=== PATIENT | male | born 1935 | race Hispanic/Latino ===

== ENCOUNTER 2017-11-19 22:24 | Observation (INO) | payer OTHER ==
[~2017-11-19] VITALS: Ht 188 cm; Wt 98.3 kg
[~2017-11-19 22:24] MED LIST: BENA10TA3 PO; EZET10 PO; LEVO100T6 PO; SIMV40TA59 PO; TAMS0.4C32 PO
[2017-11-19] MEDS ORDERED: ONDANSETRON HCL 4 MG/2 ML VIAL ONE (22:34)
[2017-11-19] MEDS ORDERED: SODIUM CHLORIDE 0.9% 500ML 500 ML IV ONE (22:34)
[2017-11-19 22:50] LABS: BASOPHILS % (AUTO) 0.4 % (0.0-5.0); EOSINOPHILS % (AUTO) 0.2 % (0.0-8.0); HEMATOCRIT 41.8 % (42-54); LYMPHOCYTES % (AUTO) 22.6 % (21.0-51.0); MEAN CORPUSCULAR HEMOGLOBIN 32.5 pg (27.0-33.0); MEAN CORPUSCULAR HGB CONC 34.2 g/dL (32.0-36.0); MEAN CORPUSCULAR VOLUME 95.2 fL (79-99); MONOCYTES % (AUTO) 8.3 % (3.0-13.0); NEUTROPHILS % (AUTO) 68.5 % (40.0-77.0); PLATELET COUNT (AUTO) 281 K/uL (130-400); RED BLOOD CELL COUNT(AUTO) 4.39 MIL/uL (4.50-6.20); RED CELL DISTRIBUTION WIDTH 13.6 % (11.0-15.5); WHITE BLOOD COUNT (AUTO) 7.2 K/uL (4.8-10.8)
[2017-11-19 23:00] LABS: CREATININE 0.7 mg/dL (0.5-1.5); POTASSIUM 4.4 mmol/L (3.5-5.1)
[2017-11-19 23:04] LABS: ALBUMIN 3.6 g/dL (3.5-5.0); BILIRUBIN,DIRECT 0.2 mg/dL (0.0-0.3); BILIRUBIN,TOTAL 0.6 mg/dL (0.2-1.0); TOTAL PROTEIN, SERUM 7.3 g/dL (6.0-8.3)
[2017-11-19 23:10] LABS: B-TYPE NATRIURETIC PEPTIDE 10 pg/mL (0-100)
[2017-11-20 00:53] LABS: APPEARANCE,URINE Clear (CLEAR); BILIRUBIN,URINE Negative (NEGATIVE); COLOR,URINE Yellow (YELLOW); GLUCOSE, URINE (UA) Negative (NEGATIVE); KETONES,URINE Negative (NEGATIVE); LEUKOCYTE ESTERASE ,URINE Negative (NEGATIVE); NITRATE,URINE Negative (NEGATIVE); OCCULT BLOOD,URINE Negative (NEGATIVE); PH,URINE 6.5 (5.0-8.0); PROTEIN,URINE Negative (NEGATIVE)
[2017-11-20] MEDS ORDERED: SODIUM CHLORIDE 0.9% 1000ML 1,000 ML IV ONE (04:03)
[2017-11-20] MEDS: SODIUM CHLORIDE 0.9% 1000ML 1,000 ML IV SCH ×2 (06:17→22:57)
[2017-11-20] MEDS ORDERED: NITROGLYCERIN 0.4 MG SL TAB SL PRN (06:30)
[2017-11-20] MEDS ORDERED: POTASSIUM CHLORIDE 20MEQ/100ML 100 ML IV PRN (06:30)
[2017-11-20] MEDS ORDERED: LACTULOSE 20 GM/30 ML UDCUP PO PRN (06:30)
[2017-11-20] MEDS ORDERED: GUAIFENESIN-DM 200/20 MG 10 ML PO PRN (06:30)
[2017-11-20] MEDS ORDERED: LIDOCAINE HCL-MPF 1% 2ML VIAL IVP PRN (06:30)
[2017-11-20] MEDS ORDERED: ONDANSETRON HCL 4 MG/2 ML VIAL IV PRN (06:30)
[2017-11-20] MEDS ORDERED: POTASSIUM CHLORIDE 20 MEQ ERTAB PO PRN (06:30)
[2017-11-20] MEDS ORDERED: ACETAMINOPHEN 325 MG TAB PO PRN ×2 (06:30)
[2017-11-20] MEDS ORDERED: POTASSIUM CHLORIDE 10% ELIXIR 20 MEQ/15 ML UDCUP PO PRN (06:30)
[2017-11-20] MEDS ORDERED: FAMOTIDINE 20MG TAB 20 MG TAB ONE (08:45)
[2017-11-20] MEDS: FAMOTIDINE 20MG TAB 20 MG TAB PO SCH ×2 (09:00→21:15)
[2017-11-20 16:00] VITALS: BP 130/79
[2017-11-20] MEDS ORDERED: CARB1TAB20 PO (16:51)
[2017-11-20] MEDS ORDERED: PENT400T12 PO (16:51)
[2017-11-20] MEDS ORDERED: RILU50TA8 PO ×2 (16:51)
[2017-11-20] MEDS ORDERED: PARO-37 PO (16:51)
[2017-11-20] MEDS ORDERED: SIMV40TA5 PO (16:51)
[2017-11-20 19:00] VITALS: BP 147/80
[2017-11-20 23:00] VITALS: BP_SYST 147; BP_SYST 152; BP_SYST 159; BP_DIAS 100; BP_DIAS 91; BP_DIAS 94
[2017-11-21 03:00] VITALS: BP_SYST 143; BP_SYST 150; BP_SYST 156; BP_DIAS 86; BP_DIAS 94; BP_DIAS 96
[2017-11-21 07:00] VITALS: BP 152/84
[2017-11-21] MEDS: FAMOTIDINE 20MG TAB 20 MG TAB PO SCH (10:08)
[2017-11-21 12:00] VITALS: BP 152/87
== END 2017-11-21 14:30 | disposition home or self-care (01) ==
LOC: EDH 22:24 → EDHIP 11-20 01:43 → 3CH 11-20 15:43
PROVIDERS: ADMIT Family Medicine; ATTEND Family Medicine
DX: I95.1 Orthostatic hypotension (principal); R42 Dizziness and giddiness; I10 Essential (primary) hypertension; E78.5 Hyperlipidemia, unspecified; E03.9 Hypothyroidism, unspecified; G12.21 Amyotrophic lateral sclerosis; G20 Parkinson's disease; Z82.49 Family history of ischemic heart disease and other diseases of the circulatory system
CPT/HCPCS: 36415; 70450; 80048; 80076; 81003; 82550; 83880; 84443; 84484; 85025; 93005; 93306; 93880; 99285; G0378 ×37; J2405; J7030; J7040

== ENCOUNTER → 2018-03-21 | Outpatient (CLI) | payer OTHER, MEDICARE ==
[~2018-03-21] MED LIST changes: +BENA10TA10 PO; -BENA10TA3 PO; +CARB1TAB20 PO; -EZET10 PO; +PARO-37 PO; +PENT400T12 PO; +RILU50TA8 PO; +SIMV40TA5 PO; -SIMV40TA59 PO; -TAMS0.4C32 PO
== END | disposition home or self-care (01) ==
LOC: SHCH 13:55
PROVIDERS: ATTEND Internal Medicine Cardiovascular Disease
DX: I87.2 Venous insufficiency (chronic) (peripheral) (principal); Z99.3 Dependence on wheelchair
CPT/HCPCS: 93970

== ENCOUNTER 2018-07-20 19:36 | Observation (INO) | payer OTHER, MEDICARE ==
[~2018-07-20] VITALS: Ht 188 cm; Wt 106.4 kg
[2018-07-20 20:26] LABS: BASOPHILS % (AUTO) 0.4 % (0.0-5.0); EOSINOPHILS % (AUTO) 0.3 % (0.0-8.0); HEMATOCRIT 46.1 % (42-54); LYMPHOCYTES % (AUTO) 7.9 % (21.0-51.0); MEAN CORPUSCULAR HEMOGLOBIN 32.1 pg (27.0-33.0); MEAN CORPUSCULAR HGB CONC 33.6 g/dL (32.0-36.0); MEAN CORPUSCULAR VOLUME 95.3 fL (79-99); MONOCYTES % (AUTO) 6.2 % (3.0-13.0); NEUTROPHILS % (AUTO) 85.2 % (40.0-77.0); PLATELET COUNT (AUTO) 274 K/uL (130-400); RED BLOOD CELL COUNT(AUTO) 4.84 MIL/uL (4.50-6.20); RED CELL DISTRIBUTION WIDTH 13.9 % (11.0-15.5); WHITE BLOOD COUNT (AUTO) 8.9 K/uL (4.8-10.8)
[2018-07-20] MEDS ORDERED: ONDANSETRON HCL 4 MG/2 ML VIAL ONE (20:32)
[2018-07-20] MEDS ORDERED: SODIUM CHLORIDE 0.9% 500ML 500 ML IV ONE (20:33)
[2018-07-20] MEDS ORDERED: KETOROLAC TROMETHAMINE 30MG/ML ONE (20:33)
[2018-07-20 20:38] LABS: CREATININE 0.6 mg/dL (0.5-1.5); POTASSIUM 4.6 mmol/L (3.5-5.1)
[2018-07-20 20:39] LABS: INR 0.95 (0.85-1.15); PARTIAL THROMBOPLASTIN TIME 28.2 SEC (26.3-35.5)
[2018-07-20 20:42] LABS: ALBUMIN 3.4 g/dL (3.5-5.0); BILIRUBIN,DIRECT 0.1 mg/dL (0.0-0.3); BILIRUBIN,TOTAL 0.6 mg/dL (0.2-1.0); TOTAL PROTEIN, SERUM 7.4 g/dL (6.0-8.3)
[2018-07-20 22:03] LABS: APPEARANCE,URINE Clear (CLEAR); BILIRUBIN,URINE Small (NEGATIVE); COLOR,URINE Dark Yellow (YELLOW); GLUCOSE, URINE (UA) Negative (NEGATIVE); KETONES,URINE Trace mg/dL (NEGATIVE); LEUKOCYTE ESTERASE ,URINE Trace (NEGATIVE); NITRATE,URINE Negative (NEGATIVE); OCCULT BLOOD,URINE Negative (NEGATIVE); PH,URINE 5.5 (5.0-8.0); PROTEIN,URINE Negative (NEGATIVE)
[2018-07-20 22:15] LABS: HYALINE CASTS, URINE 0-1 /LPF (0-1 /LPF)
[2018-07-20 22:17] LABS: MUCUS,URINE Many LPF (None Seen); RBC,URINE 0-1 /HPF (0-1)
[2018-07-20 22:18] LABS: BACTERIA,URINE Few /HPF (None Seen)
[2018-07-21] MEDS ORDERED: SODIUM CHLORIDE 0.9% 1000ML 1,000 ML IV ONE (00:14)
[2018-07-21] MEDS ORDERED: MAGNESIUM CITRATE 296 ML SOLUTION ONE (00:29)
[2018-07-21 00:30] VITALS: BP 136/72
[2018-07-21] MEDS ORDERED: KETOROLAC TROMETHAMINE 30MG/ML IM PRN (01:00)
[2018-07-21] MEDS ORDERED: SODIUM CHLORIDE 0.9% 1000ML 1,000 ML IV SCH (01:00)
[2018-07-21] MEDS ORDERED: CLONIDINE HCL 0.1 MG TABLET PO PRN (01:00)
[2018-07-21] MEDS ORDERED: ACETAMINOPHEN 325 MG TAB PO PRN (01:00)
[2018-07-21] MEDS ORDERED: ONDANSETRON HCL 4 MG/2 ML VIAL IVP PRN (01:00)
[2018-07-21] MEDS ORDERED: MAGNESIUM CITRATE 296 ML SOLUTION PO SCH (01:00)
[2018-07-21 04:00] VITALS: BP 122/73
[2018-07-21] MEDS ORDERED: SIMV40TA59 PO (08:13)
[2018-07-21] MEDS ORDERED: BISA10SU8 RC (08:13)
[2018-07-21] MEDS ORDERED: CETI10TA57 PO (08:13)
[2018-07-21] MEDS ORDERED: FURO20TA4 PO (08:13)
[2018-07-21] MEDS ORDERED: PANTOPRAZOLE SODIUM 40 MG TABLET.DR PO SCH (09:00)
[2018-07-21 09:30] VITALS: BP 143/81
[2018-07-21] MEDS ORDERED: BISACODYL 10 MG SUPP.RECT RC PRN (10:45)
[2018-07-21 13:11] VITALS: BP 141/77
[2018-07-21] MEDS: MAGNESIUM CITRATE 296 ML SOLUTION PO SCH (13:22)
[2018-07-21] MEDS: MINERAL OIL 30 ML UDCUP PR SCH (15:52)
[2018-07-21] MEDS: PAROXETINE HCL 20 MG TABLET PO SCH ×2 (17:00→18:12)
[2018-07-21] MEDS: PENTOXIFYLLINE 400 MG TABLET.SA PO SCH ×2 (17:00→18:11)
[2018-07-21 18:11] VITALS: BP 157/90
[2018-07-21 20:00] VITALS: BP 138/76
[2018-07-21] MEDS ORDERED: ZOLPIDEM TARTRATE 5 MG TAB PO SCH (21:00)
[2018-07-21] MEDS ORDERED: SIMVASTATIN 10 MG TABLET PO SCH (21:00)
[2018-07-22] VITALS: BP 138/80
[2018-07-22 04:00] VITALS: BP 138/78
[2018-07-22] MEDS ORDERED: LEVOTHYROXINE 100 MCG TABLET PO SCH (05:00)
[2018-07-22] MEDS ORDERED: BENAZEPRIL HCL 10 MG TABLET PO SCH (06:00)
[2018-07-22 08:00] VITALS: BP 129/72
[2018-07-22] MEDS ORDERED: POLYETHYLENE GLYCOL 3350 17 GM POWD.PACK PO SCH (09:00)
[2018-07-22] MEDS ORDERED: CARBIDOPA-LEVODOPA 25-100 TAB PO SCH (09:00)
[2018-07-22 11:00] VITALS: BP 156/84
[2018-07-22] MEDS: MAGNESIUM CITRATE 296 ML SOLUTION PO SCH (13:00)
[2018-07-22] MEDS: MINERAL OIL 30 ML UDCUP PR SCH (13:00)
== END 2018-07-22 14:13 | disposition home or self-care (01) ==
LOC: EDH 19:36 → EDHIP 22:38 → 3AH 23:23
PROVIDERS: ADMIT Internal Medicine; ATTEND Internal Medicine
DX: K56.41 Fecal impaction (principal); E86.0 Dehydration; E78.5 Hyperlipidemia, unspecified; E89.0 Postprocedural hypothyroidism; F03.90 Unspecified dementia, unspecified severity, without behavioral disturbance, psychotic disturbance, mood disturbance, and anxiety; G20 Parkinson's disease
CPT/HCPCS: 36415; 74018; 74176; 74230; 80048; 80076; 81001; 83690; 84484; 85025; 85610; 85730; 92610; 92611; 93005; 94660 ×2; 96360; 96361 ×2; 99285; A4600; A6453; G0378 ×40; J1885; J2405; J7030 ×4; J7040